=== PATIENT | male | born 1975 ===

== ENCOUNTER 2018-03-17 08:01 | Emergency (ER) | payer OTHER ==
[2018-03-17 08:33] VITALS: RESP 18; TEMP 98.2
--- NOTE | 2018-03-17 08:46 | C.PDOC ---
History Of Present Illness [id number] male presents to ED for complaints of worsening epigastric pain that began last night. Patient reports he has been experiencing epigastric and RUQ intermittent pain since a year ago but has increased frequently since last month. Patient states his last episode was last night but currently improved. Patient currently complaints of new onset radiation to the right flank. Denies fever, nausea, vomiting, hematuria, or urgency. Also denies PSH of appendectomy. WORSENING EPIG/RUQ PAIN SINCE LAST NIGHT. INTERMIT PAIN EPIG/RUQ PAIN X 1 YR, INCR FREQ X 1 MO. LAST EPISODE LAST NIGHT, NOW IMPROVED. NEW ONSET RAD R FLANK. NO FEVER, NV. PSH APPY. DENIES HEMATURIA, URGENCY EXAM NONTOXIC APPEARS COMFORTABLE HEENT ANICTERIC ABD NEG REMAINDER NEG Time Seen by Provider: 03/17/18 08:29 Chief Complaint (Nursing): Abdominal Pain History Per: Patient History/Exam Limitations: no limitations Onset/Duration Of Symptoms: Hrs Current Symptoms Are (Timing): Still Present Location Of Pain/Discomfort: RUQ, Epigastric Radiation Of Pain To:: Flank (right) Quality Of Discomfort: "Pain" Associated Symptoms: denies: Fever, Chills, Nausea, Vomiting, Urinary Symptoms Exacerbating Factors: None Alleviating Factors: None Last Bowel Movement: Today Recent travel outside of the [place]: No Past Medical History Reviewed: Historical Data, Nursing Documentation, Vital Signs Vital Signs: Last Vital Signs Temp 98.2 F 03/17/18 08:10 Pulse 78 03/17/18 10:42 Resp 18 03/17/18 10:42 BP 127/88 03/17/18 10:42 Pulse Ox 100 03/17/18 10:42 - Medical History PMH: No Chronic Diseases Surgical History: Appendectomy Family History: States: No Known Family Hx - Social History Hx Alcohol Use: No Hx Substance Use: No - Immunization History Hx Tetanus Toxoid Vaccination: No Hx Influenza Vaccination: No Hx Pneumococcal Vaccination: No Review Of Systems Constitutional: Negative for: Fever, Chills Gastrointestinal: Positive for: Abdominal Pain (Epigastric and RUQ radiating to right flank ). Negative for: Nausea, Vomiting, Diarrhea Genitourinary: Negative for: Hematuria, Other (Urgency) Neurological: Negative for: Weakness, Numbness Physical Exam - Physical Exam Appears: Non-toxic, Other (Comfortable) Skin: Normal Color, Warm, Dry, No Jaundice Head: Atraumatic, Normacephalic Eye(s): bilateral: Normal Inspection, Other (Anicteric ) Ear(s): Bilateral: Normal Nose: Normal Oral Mucosa: Moist Chest: Symmetrical, No Tenderness Cardiovascular: Rhythm Regular Respiratory: Normal Breath Sounds, No Decreased Breath Sounds, No Rales, No Rhonchi, No Wheezing Gastrointestinal/Abdominal: Soft, No Tenderness, No Distention, No Guarding, No Rebound Neurological/Psych: Oriented x3, Normal Speech, Normal Cognition Gait: Steady ED Course And Treatment - Laboratory Results Result Diagrams: 03/17/18 09:08 03/17/18 09:08 O2 Sat by Pulse Oximetry: 99 (RA) Pulse Ox Interpretation: Normal - CT Scan/US Abdomen US Other Rad Studies (CT/US): Read By Radiologist, Radiology Report Reviewed CT/US Interpretation: HISTORY: abd pain. COMPARISON: None. TECHNIQUE: Sonographic evaluation of the right upper quadrant of the abdomen. FINDINGS: LIVER: Measures 15.3 cm in length. Normal echogenicity of the liver parenchyma. No mass. No intrahepatic bile duct dilatation. GALLBLADDER: Cholelithiasis with gallbladder sludge, wall thickening and pericholecystic fluid. COMMON BILE DUCT: Measures 3 mm. No stones. No dilatation. PANCREAS: Not well-visualized. RIGHT KIDNEY: Measures 11.2 x 4.6 x 5.4 cm in length. Normal echogenicity. No calculus, mass, or hydronephrosis. AORTA: No aneurysmal dilatation. IVC: Unremarkable. OTHER FINDINGS: None . IMPRESSION : Cholelithiasis with sludge, gallbladder wall thickening and pericholecystic fluid. Findings are suspicious for acute cholecystitis in the appropriate clinical setting. Progress - Re-Evaluation Re-evaluation Note: 03/17/18 10:40 S/P MORPHINE FEELS BETTER. NAD. D/W SURG RESIDENT WILL EVAL IN ER 03/17/18 11:21 APPEARS COMFORTABLE NAD. S/P EVAL SURG RESIDENT, CLEARED FOR OUTPT EVAL - Data Reviewed Data Reviewed: Lab, Diagnostic imaging, Old records Medical Decision Making Medical Decision Making: Ordered blood work, urinalysis and US of abdomen. Administered Morphine and Zofran. Disposition Counseled Patient/Family Regarding: Studies Performed, Diagnosis, Need For Followup, Rx Given - Disposition Referrals: Lm Landeros MD [Staff Provider] - [facility] [Outside] [facility] [Outside] Disposition: HOME/ ROUTINE Disposition Time: 11:21 Condition: IMPROVED Prescriptions: Ondansetron [Zofran Odt] 4 mg PO TID PRN #9 odt PRN Reason: Nausea/Vomiting oxyCODONE/Acetaminophen [Percocet 5/325 mg Tab] 1 ea PO QID #8 tab Instructions: Gallstones (DC) Forms: [employer] ([employer]), Work Excuse Print Language: NEPALI - Clinical Impression Clinical Impression: Biliary colic - Scribe Statement The provider has reviewed the documentation as recorded by the Emileeibmatt Fonseca All medical record entries made by the Emileeibmatt were at my direction and personally dictated by me. I have reviewed the chart and agree that the record accurately reflects my personal performance of the history, physical exam, medical decision making, and the department course for this patient. I have also personally directed, reviewed, and agree with the discharge instructions and disposition.
[2018-03-17 09:17] LABS: BASO # 0.1 K/uL (0.0-0.2); BASO % 0.9 % (0.0-2.0); EOS # 0.3 K/uL (0.0-0.7); EOS % 3.7 % (0.0-4.0); HEMOGLOBIN 15.5 g/dL (12.0-18.0); LYMPH # 1.9 K/uL (1.0-4.3); LYMPH % 27.4 % (20.0-40.0); MEAN CELL VOLUME 87.9 fL (80.0-94.0); MEAN CORPUSCULAR HGB CONC 35.3 g/dL (33.0-37.0); MEAN PLATELET VOLUME 8.4 fL (7.2-11.7); MONO # 0.3 K/uL (0.0-0.8); MONO % 4.9 % (0.0-10.0); NEUT # 4.3 K/uL (1.8-7.0); NEUT % 63.1 % (50.0-75.0); NRBC % 0.1 % (0.0-2.0); RBC 4.99 Mil/uL (4.40-5.90); URINE BILIRUBIN NEGATIVE (NEGATIVE); URINE BLOOD NEGATIVE (NEGATIVE); URINE CLARITY Clear (Clear); URINE COLOR Yellow (YELLOW); URINE GLUCOSE (UA) NORMAL (Normal); URINE LEUKOCYTE ESTERASE NEG Leu/uL (Negative); URINE PROTEIN NEGATIVE (NEGATIVE); URINE UROBILINOGEN NORMAL mg/dL (0.2-1.0); WHITE BLOOD COUNT 6.9 K/uL (4.8-10.8)
[2018-03-17 09:27] LABS: ALB/GLOB RATIO 1.3 (1.0-2.1); ALBUMIN 4.3 g/dL (3.5-5.0); ALT/SGPT 47 U/L (21-72); AST/SGOT 35 U/L (17-59); BLOOD UREA NITROGEN 18 mg/dL (9-20); GFR AFRICAN-AMERICAN > 60; GFR NON-AFRICAN AMERICAN > 60; LIPASE 76 U/L (23-300)
[2018-03-17] MEDS ORDERED: Morphine 4 MG/ML VIAL ONE (09:51)
--- NOTE | 2018-03-17 10:09 | US ---
HISTORY: abd pain COMPARISON: None. TECHNIQUE: Sonographic evaluation of the right upper quadrant of the abdomen. FINDINGS: LIVER: Measures 15.3 cm in length. Normal echogenicity of the liver parenchyma. No mass. No intrahepatic bile duct dilatation. GALLBLADDER: Cholelithiasis with gallbladder sludge, wall thickening and pericholecystic fluid. COMMON BILE DUCT: Measures 3 mm. No stones. No dilatation. PANCREAS: Not well-visualized. RIGHT KIDNEY: Measures 11.2 x 4.6 x 5.4 cm in length. Normal echogenicity. No calculus, mass, or hydronephrosis. AORTA: No aneurysmal dilatation. IVC: Unremarkable. OTHER FINDINGS: None . IMPRESSION: Cholelithiasis with sludge, gallbladder wall thickening and pericholecystic fluid. Findings are suspicious for acute cholecystitis in the appropriate clinical setting. Findings conveyed to Dr. Ocasio by Dr. Renner at 10:07 am on 03/17/2018.
[2018-03-17 10:42] VITALS: BP 127/88; PULSE 78
[2018-03-17 11:22] VITALS: O2SAT 99
--- NOTE | 2018-03-17 11:49 | CP.PCM.CON ---
History of Present Illness - History of Present Illness History of Present Illness: General surgery consult note for Dr. Wily Merchant, PGY-1 Pt S & E at bedside at 1120 42M w/no sig PMH consulted for RUQ abdominal pain x 1 day. Pt reports onset after eating pizza last night, pain was moderate-severe with radiation to low back, alleviated by pain mediation in ED. Admits to similar episodes of similar x 2 yrs, usually shorter duration of pain after eating spicy or fatty foods. Episodes have been lengthening. Reports diarrhea one day after eating spicy/fatty foods. Reports one episode of loose BM, non bloody. Denies N & V, F & C, changes in urination, Headache, SOB, chest pain, other complaints. In ED- afebrile, no leukocytosis, ab U/S w/ CBD 3mm, cholelithiasis, sludge and wall thickening with pericholecystic fluid. T bili 0.9, LFTs WNL, lipase WNL. PMH: Denies PSH: open appendectomy All: NKDA SH: Denies ETOH, tobacco, or illicit drug use Review of Systems - Review of Systems All systems: reviewed and no additional remarkable complaints except - Constitutional Constitutional: absent: Anorexia, Chills, Fever, Increased Appetite - EENT Eyes: absent: Change in Vision Ears: absent: Dizziness Nose/Mouth/Throat: absent: Sore Throat - Cardiovascular Cardiovascular: absent: Chest Pain - Respiratory Respiratory: absent: Cough - Gastrointestinal Gastrointestinal: Abdominal Pain, Diarrhea. absent: Constipation, Hematemesis, Hematochezia, Nausea, Vomiting - Genitourinary Genitourinary: absent: Dysuria, Hematuria - Musculoskeletal Musculoskeletal: absent: Back Pain, Numbness, Tingling - Integumentary Integumentary: absent: New Lesions - Neurological Neurological: absent: Weakness - Psychiatric Psychiatric: absent: Change in Appetite Past Patient History - Past Social History Smoking Status: Never Smoked - PSYCHIATRIC Hx Substance Use: No - SURGICAL HISTORY Hx Appendectomy: Yes - ANESTHESIA Hx Anesthesia: Yes Hx Anesthesia Reactions: No Hx Malignant Hyperthermia: No Meds Home Medications: Home Medication List Medication Instructions Recorded Confirmed Type Ondansetron [Zofran Odt] 4 mg PO TID PRN #9 odt 03/17/18 Rx oxyCODONE/Acetaminophen [Percocet 1 ea PO QID #8 tab 03/17/18 Rx 5/325 mg Tab] Allergies/Adverse Reactions: Allergies Allergy/AdvReac Type Severity Reaction Status Date / Time No Known Allergies Allergy Verified 03/17/18 08:13 Physical Exam - Constitutional Appears: Non-toxic, No Acute Distress - Head Exam Head Exam: ATRAUMATIC, NORMAL INSPECTION, NORMOCEPHALIC - Eye Exam Eye Exam: EOMI, Normal appearance - ENT Exam ENT Exam: Mucous Membranes Moist, Normal Exam - Neck Exam Neck exam: Positive for: Full Rom, Normal Inspection - Respiratory Exam Respiratory Exam: NORMAL BREATHING PATTERN - Cardiovascular Exam Cardiovascular Exam: REGULAR RHYTHM, +S1, +S2 - GI/Abdominal Exam GI & Abdominal Exam: Normal Bowel Sounds, Soft. absent: Distended, Firm, Guarding, Hernia, Rigid, Tenderness Additional comments: well healed linear scar over RUQ - Extremities Exam Extremities exam: Positive for: normal inspection. Negative for: tenderness - Back Exam Back exam: NORMAL INSPECTION. absent: CVA tenderness (L), CVA tenderness (R) - Neurological Exam Neurological exam: Alert, CN II-XII Intact, Oriented x3 - Psychiatric Exam Psychiatric exam: Normal Affect, Normal Mood - Skin Skin Exam: Dry, Intact, Normal Color, Warm Results - Vital Signs Recent Vital Signs: Last Vital Signs Temp 98.2 F 03/17/18 08:10 Pulse 78 03/17/18 10:42 Resp 18 03/17/18 10:42 BP 127/88 03/17/18 10:42 Pulse Ox 99 03/17/18 11:22 - Labs Result Diagrams: 03/17/18 09:08 03/17/18 09:08 Labs: Laboratory Results - last 24 hr 03/17/18 03/17/18 03/17/18 09:08 09:08 09:08 WBC 6.9 RBC 4.99 Hgb 15.5 Hct 43.8 MCV 87.9 MCH 31.0 MCHC 35.3 RDW 13.0 Plt Count 241 MPV 8.4 Neut % (Auto) 63.1 Lymph % (Auto) 27.4 [place] % (Auto) 4.9 Eos % (Auto) 3.7 Baso % (Auto) 0.9 Neut # (Auto) 4.3 Lymph # (Auto) 1.9 [place] # (Auto) 0.3 Eos # (Auto) 0.3 Baso # (Auto) 0.1 Sodium 143 Potassium 4.5 Chloride 105 Carbon Dioxide 27 Anion Gap 16 BUN 18 Creatinine 0.7 L Est GFR ( Amer) > 60 Est GFR (Non-Af Amer) > 60 Random Glucose 97 Calcium 9.0 Total Bilirubin 0.9 AST 35 ALT 47 Alkaline Phosphatase 81 Total Protein 7.6 Albumin 4.3 Globulin 3.4 Albumin/Globulin Ratio 1.3 Lipase 76 Urine Color Yellow Urine Clarity Clear Urine pH 6.0 Ur Specific [place] 1.014 Urine Protein Negative Urine Glucose (UA) Normal Urine Ketones Negative Urine Blood Negative Urine Nitrate Negative Urine Bilirubin Negative Urine Urobilinogen Normal Ur Leukocyte Esterase Neg Urine WBC (Auto) 1 Assessment & Plan - Assessment and Plan (Free Text) Assessment: 42M w/no sig PMH consulted for RUQ ab pain due to symptomatic cholelithiasis Plan: Recommend elective outpatient cholecystectomy To follow up in the office to schedule Recommended low fat diet until then LIZA attending Shonda, PGY-1 - Date & Time Date: 03/17/18 Time: 11:59
== END 2018-03-17 11:55 | disposition home or self-care (01) ==
LOC: C.ER 08:01
DX: K80.20 Calculus of gallbladder without cholecystitis without obstruction (principal)
CPT/HCPCS: 76705; 80053; 81001; 83690; 85025; 96374; 96375; 99285; J2270; J2405

== ENCOUNTER 2018-05-08 06:03 | Day surgery (SDC) | payer SELFPAY ==
[2018-05-08] MEDS ORDERED: Propofol 10 mg/ml Inj (20 ML) ONE ×2 (07:15→08:15)
[2018-05-08] MEDS ORDERED: Rocuronium 10 mg/ml (5 ml) ONE ×2 (07:17→09:35)
[2018-05-08] MEDS ORDERED: Midazolam 2 MG/2 ML VIAL ONE (07:36)
[2018-05-08] MEDS ORDERED: ceFAZolin IV 1 gm in Dextrose 1 GM/50 ML BAG IVPB ONE (07:43)
[2018-05-08] MEDS ORDERED: Lidocaine Hydrochloride 15 ML INJ ONE ×2 (08:53→10:11)
[2018-05-08] MEDS ORDERED: Neostigmine Methylsulfate 3mg/3ml Syringe IV ONE (09:01)
--- NOTE | 2018-05-08 10:02 | PCM.OP ---
Operative Report - Operative Report Date of Surgery/Procedure: 05/08/18 Time of Surgery/Procedure: 08:00 Surgeon: Dank Kapoor MD Clinical Academic Allergist: Saritha Stevens DO (PGY2 resident) Anesthesia/Sedation: General endotracheal; 1% lidocaine + 0.25% Marcain mix local anesthesia Pre-Operative Diagnosis: Symptomatic cholelithiasis. Umbilical hernia Post-Operative Diagnosis: Symptomatic cholelithiasis. Umbilical hernia Indication for Surgery: This is a 43-year-old male recurrent symptomatic cholelithiasis and symptomatic umbilical hernia. Details of HPI in clinical chart. Taken to the operating room for laparoscopic, robotic assisted cholecystectomy and primary suture repair of umbilical hernia. Patient understands the risks and benefits of the procedure as documented in the clinic chart but specifically risk of cystic duct leak and common bile duct injury; and hernia recurrence and has consented to the procedure. Operative Findings: Dilated fluid filled gallbladder with multiple medium - large stones. Cystic duct flow confirmed using Firefly (ICG)fluorescence prior to clipping and dividing. Clips in place on cystic duct and cystic artery at end of case without evidence of bleeding or bile leak. Photodocumentation of critical view taken and copy placed in patients chart. 1cm umbilical hernia defect; fat containing. Procedure/Operation Description: PROCEDURE PERFORMED: Laparoscopic, Robotic Assisted Cholecystectomy with Intraoperative Indigocyanine (ICG) florescence. Umbilical hernia repair, primary suture repair. DETAILS OF OPERATION: The patient was given a preoperative dose of Ancef 2g 20 minutes before the incision. SCD boots were placed for DVT prophylaxis. The patient voided in pre- op immediately prior to surgery and no lozada was placed. An orogastric tube placed in order to empty the stomach after the induction of general anesthesia. Upper body warmer placed. The abdomen was prepped and draped in sterile fashion and vertical incision was made directly over umbilical hernia, fascia was identified and cleaned of herniated fat circumferentially. A 11-mm trocar was inserted in the abdomen under direct vision and the abdomen was insufflated to 15 mmHg pressure with CO2. An 8mm robotic 30-degree viewing scope was then inserted and the abdomen was generally inspected and there was not found to be any additional signs of pathology. An 8mm port was introduced through the 11mm laparoscopic port. In the right mid abdomen, two 8-mm robotic ports were placed after injection of local anesthetic under direct vision and another 8m robotic port in the left mid-upper abdomen was placed in the similar fashion. The patient was placed in slight reverse trendelberg and right side up. A face protecting foam was placed over the patient's face and the robot was docked to the patient. Robotic instruments were then inserted under direct visualization. A prograsp retractor in the right lateral port, fenestrated bipolar in right medial port, and monopolar cautery in the left abdominal port. . The fundus of the gallbladder was identified beneath the liver edge and retracted to the right upper quadrant with the prograsp grasper and locked in place. The neck of the gallbladder was visualized. There were minimal omental adhesions to the gallbladder that were taken down with a cominbation of blunt dissection and monopolar hook cautery. The peritoneal attachments from the lateral portion of the gallbladder/cystic duct junction were gently dissected and divided to open up the [place]. The [place] was then dissected up onto the liver bed posterior to the gallbladder in order to ensure that this was the cystic duct and not tenting of the common bile duct. The peritoneal attachments on the medial portion of the gallbladder going up to the side of the liver were taken. The critical view was obtained. The duct was then doubly clipped and ligated and the clips were inspected. The cystic artery was identified and was divided between clips. The gallbladder was dissected free from the liver bed using electrocautery and placed this in an endo catch bag. Once this was done, the abdomen was reinspected. The clips were in good position on the cystic artery and duct stumps. Robotic instruments were withdrawn under direct vision and the robot was then undocked from the patient. Robotic Camera was resinserted throuhg the left abdominal port and gallbladder specimen was withdrawn through the umbilical port. Once this was done, the ports were removed from the abdomen and the abdomen was desufflated with air. The umbilical port was closed with a 0-maxon interrupted sutures x 5 total and the skin incisions were closed with 4-0 monocryl sutures and finally dermabond. The patient tolerated the procedure well and was extubated in the operating room and brought to recovery in stable condition. I was present for the entirety of the operation. All sponge, needle and instrument counts were correct. Estimated Blood Loss: 20 Complications: none Specimen: gallbladder Discharge & Condition: to recovery in stable condition.
--- NOTE | 2018-05-08 10:17 | PCM.SURG1 ---
Surgeon's Initial Post Op Note - Surgeon's Notes Surgeon: Dr. Kapoor [employer] Consultant: ericka Stevens PGY2 Type of Anesthesia: General Endo, Local Anesthesia Administered By: Dr. Servin Pre-Operative Diagnosis: Cholecystitis, cholelithiasis, Umbilical hernia Operative Findings: Large gallstones. 1x1cm Umbilical hernia Post-Operative Diagnosis: Same Operation Performed: Laparoscpic assisted Robotic cholecystectomy , primary umbilical hernia repair Specimen/Specimens Removed: gallbladder, incarcerated umbilical fat Estimated Blood Loss: EBL {In ML}: 50 Blood Products Given: N/A Drains Used: No Drains Post-Op Condition: Good Date of Surgery/Procedure: 05/08/18 Time of Surgery/Procedure: 10:18
[2018-05-08] MEDS ORDERED: Oxycodone/Acetaminophen 5/325 mg Tab PO PRN (10:19)
[2018-05-08] MEDS ORDERED: Lactated Ringer's 500 ML IV ONE (10:40)
[2018-05-08] MEDS: HYDROmorphone 0.5 mg/0.5 ml ISec IVP PRN ×2 (10:43→11:15)
[2018-05-08] MEDS ORDERED: Lactated Ringer's 1,000 ML IV ONE (12:50)
[2018-05-08 15:27] VITALS: TEMP 97.7
[2018-05-08 17:40] VITALS: BP 135/90; PULSE 82; RESP 20; O2SAT 99
== END 2018-05-08 17:25 | disposition home or self-care (01) ==
LOC: C.SDS 06:03
PROVIDERS: ATTEND Surgery
DX: K80.10 Calculus of gallbladder with chronic cholecystitis without obstruction (principal); K42.0 Umbilical hernia with obstruction, without gangrene
CPT/HCPCS: 47562; 49653; 88304; J0690; J1170; J1885; J2001; J2250; J2405; J2704; J2710; J3010; J7030; J7120

== ENCOUNTER 2019-03-22 09:39 | Outpatient (CLI) | payer OTHER | END 2019-03-22 09:40 | disposition home or self-care (01) | LOC: C.USIC 09:39 | DX: R10.33 Periumbilical pain (principal) ==